=== PATIENT | male | born 1960 | race Caucasian/White ===

== ENCOUNTER 2016-11-24 07:13 | Day surgery (SDC) | payer OTHER ==
[~2016-11-24] VITALS: Ht 177.8 cm; Wt 124.7 kg
[~2016-11-24 07:13] MED LIST: ACAR100T2 PO; ASPI-973 PO; GLIP5TAB2 PO; INSU100V7 SUBQ; LISI-567 PO; METF1000 PO; SIMV40TA5 PO; TADA20TA PO
[2016-11-24 07:44] VITALS: BP 130/85; PULSE 81; RESP 16; O2SAT 95
[2016-11-24] MEDS ORDERED: 0.9% Sodium Chloride 1,000 ML ONE (07:57)
[2016-11-24] MEDS ORDERED: 0.9% Sodium Chloride 1,000 ML IV SCH (08:10)
[2016-11-24] MEDS ORDERED: fentaNYL-PF 50 mCg/mL 2 mL Inj IVPUSH PRN (08:10)
[2016-11-24 08:46] VITALS: BP 117/68; PULSE 71; RESP 14; O2SAT 96
[2016-11-24 08:56] VITALS: BP 115/66; PULSE 80; RESP 14; O2SAT 98
[2016-11-24 09:06] VITALS: BP 130/72; PULSE 74; RESP 14; O2SAT 100
--- NOTE | 2016-11-24 09:13 | ENDO ---
[address] [address] ENDOSCOPY PROCEDURE PATIENT: FLAKO POWELL : 1960 MR#: [id number] ADMIT: 11/24/2016 JOB ID: [id number] DATE: 11/24/2016 PROCEDURE: Colonoscopy. INDICATION: A patient with a personal history of colon polyps. The patient's ASA classification is 2. Mallampati score is 2. MEDICATIONS: 1. Versed 5 mg. 2. Fentanyl 100 mcg. INSTRUMENT USED: PCF H 180 AL. PREPARATION QUALITY: Was good. PROCEDURE DETAILS: After informed consent was obtained, the patient was brought into the GI suite, where he was placed on oxygen via nasal cannula and monitored with continuous pulse oximeter, telemetry, and blood pressure monitoring. A time-out was performed. Then, he was placed in the left lateral decubitus position and medications were administered for sedation. A digital rectal examination with palpation of the prostate was performed which was unremarkable. The colonoscope was then inserted into the rectum and advanced under direct visualization to the cecum, which was identified by the presence of the ileocecal valve and appendiceal orifice. Once the cecum was reached, the colonoscope was withdrawn back into the rectum as the mucosa and lumen were examined. In the rectum, retroflexion was performed. Following retroflexion, remaining air in the rectum was suctioned, and the procedure was completed. FINDINGS: 1. In the ascending colon, there was a diminutive polyp that was removed with cold biopsy forceps. 2. In the transverse colon, there were two polyps that ranged in size from 4 mm to 5 mm. Both polyps were removed using a cold snare. IMPRESSION: 1. Descending colon polyp. 2. Two transverse colon polyps. RECOMMENDATIONS: 1. Fiber rich diet. 2. Repeat colonoscopy in three years. COMPLICATIONS: None. ESTIMATED BLOOD LOSS: Less than 5 mL.
--- NOTE | 2016-11-27 13:42 | PATH ---
SURGICAL PATHOLOGY Attending Physician:Zak Sandoval CASE STATUS: Signed Out PATIENT NAME: FLAKO POWELL PID: [id number] : 1960 DATE COLLECTED:11/24/2016 15:51 SPECIMEN: 1: Colon, Biopsy 2: Colon, Biopsy CLINICAL HISTORY: 1: ASCENDING COLON POLYP 2: TRANSVERSE COLON POLYP X2 FINAL DIAGNOSIS: 1. Ascending Colon Polyp: Tubular adenoma. 2. Transverse Colon Polyps: Tubular adenoma involving three biopsy fragments. ICD10 D12.2 GROSS DESCRIPTION: The specimen is received in two formalin filled containers labeled with the patient's name. 1). The specimen is sublabeled "ascending colon polyp" and consists of a 0.3 x 0.3 x 0.2 CM portion of tissue which is entirely submitted in cassette 1A. 2). The specimen is sublabeled "transverse colon polyp" 5 portions of tissue which aggregate to one fibers are been 5 x 0.4 CM. The specimen is entirely submitted in cassette 2A. 11/24/2016 [facility] ICD-9 CODES: CPT CODES: 1: 77390 2: 00973 Electronically Signed Out Ck Jauregui MD [facility] Pathology [facility] [address], [place] [address] Technical component performed at [facility], [facility] [address], [address]
== END 2016-11-24 23:59 | disposition home or self-care (01) ==
LOC: END 07:13
PROVIDERS: ATTEND Internal Medicine Gastroenterology
DX: Z12.11 Encounter for screening for malignant neoplasm of colon (principal); Z86.010 Personal history of colon polyps; D12.2 Benign neoplasm of ascending colon; D12.3 Benign neoplasm of transverse colon; E11.9 Type 2 diabetes mellitus without complications; I10 Essential (primary) hypertension; Z79.4 Long term (current) use of insulin
CPT/HCPCS: 45380; 45385; 99153; G0500; J2250; J7030